=== PATIENT | male | born 1985 | race Caucasian/White ===

== ENCOUNTER → 2025-03-06 | Outpatient (CLI) | payer BC, SELFPAY ==
--- NOTE | 2025-03-06 13:17 | NEURO ---
NCS and/or EMG Patient Report Ordering Doctor: Gwyn Gibson DATE OF SERVICE: 03/06/25 Jose presents for electrodiagnostic testing of the left lower limb. He reports an altered sensation in the left lateral thigh. Electrodiagnostic findings: Left peroneal motor nerve demonstrates prolonged latency with normal amplitude and normal conduction velocity. No drop in conduction across fibular head. Left tibial motor sponsors within normal limits. Normal left tibial and left peroneal F?waves. Normal H?reflex bilaterally. Prolonged latency noted in the left lateral femoral cutaneous nerve. Normal left sural and left superficial peroneal responses. Needle EMG testing was performed in the left lower limb. All muscles tested show no evidence of denervation with normal motor unit potentials. Electrodiagnostic impression: This is an abnormal study in the left lower limb 1. 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 2. No electrodiagnostic evidence is noted for lumbosacral radiculopathy. Multi Select Codes Neurology Neurology Interp Codes: 72885-02 Musc test done w/n test comp (interp) and 03826-77 Nrv cndj tst 5-6 studies (interp)
== END | disposition home or self-care (01) ==
PROVIDERS: PCP Physician Assistant; Referring Provider Physician Assistant; Visit Provider Physician Assistant
DX: R20.2 Paresthesia of skin (principal)
CPT/HCPCS: 95886; 95910